=== PATIENT | female | born 1990 | race American Indian/Alaskan Native ===

== ENCOUNTER 2016-08-17 13:07 | Emergency (ER) | payer MEDICAID, OTHER ==
[2016-08-17 13:07] VITALS: BMI 28.0
[2016-08-17 13:48] VITALS: BP 128/82; PULSE 67; RESP 18; TEMP 99.3; O2SAT 100
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
== END 2016-08-17 15:13 | disposition home or self-care (01) ==
LOC: C.ER 13:07
DX: S39.012A Strain of muscle, fascia and tendon of lower back, initial encounter (principal); V89.2XXA Person injured in unspecified motor-vehicle accident, traffic, initial encounter

== ENCOUNTER 2016-10-18 18:49 | Emergency (ER) | payer MEDICAID, OTHER ==
[2016-10-18 19:18] VITALS: BP 98/62; PULSE 82; TEMP 98.6; O2SAT 99
[2016-10-18 19:21] VITALS: BMI 21.6
[2016-10-18] MEDS ORDERED: Amoxicillin-Clav 875-125 mg Tab PO STA (20:25)
[2016-10-18] MEDS ORDERED: Bacitracin 500 Units/gm Oint Foilpak UD TOP ONE (20:26)
[2016-10-18] MEDS ORDERED: Amoxicillin-Clav 875-125 mg Tab PO ONE (20:39)
[2016-10-18] MEDS ORDERED: Bacitracin 500 Units/gm Oint Foilpak UD ONE (20:40)
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
[2016-10-18 21:39] VITALS: RESP 20
== END 2016-10-18 21:38 | disposition home or self-care (01) ==
LOC: SUPCPDRO 18:49 → C.ER 18:49
DX: S50.872A Other superficial bite of left forearm, initial encounter (principal); Y04.1XXA Assault by human bite, initial encounter; Y92.9 Unspecified place or not applicable

== ENCOUNTER 2017-05-02 17:07 | Emergency (ER) | payer MEDICAID ==
[2017-05-02 17:34] VITALS: BMI 22.4
[2017-05-02 20:15] VITALS: BP 105/69; PULSE 77; RESP 17; TEMP 98; O2SAT 98
[2017-05-02] MEDS ORDERED: guaiFENesin 100 mg/5 ml Syrup UD PO STA (20:46)
--- NOTE | 2017-05-02 20:48 | C.PDOC ---
History Of Present Illness 26 y/o female presents to the ER complaining of congestion and coughing which has been present for 3 days. Patient reports having chest pain with coughing.Patient states that she has some throat pain and she coughed up some green phlegm. Patient reports that she had an episode of diarrhea in the morning. Patient states that she feels weak but denies having any fever. She states that she has not taken any medications. Of note, patient works in a daycare center. Time Seen by Provider: 05/02/17 19:27 Chief Complaint (Nursing): Cough, Cold, Congestion History/Exam Limitations: no limitations Onset/Duration Of Symptoms: Days Current Symptoms Are (Timing): Still Present Associated Symptoms: Diarrhea. denies: Fever Past Medical History Reviewed: Historical Data, Nursing Documentation, Vital Signs Vital Signs: Last Vital Signs Temp 98 F 05/02/17 20:12 Pulse 77 05/02/17 20:12 Resp 17 05/02/17 20:12 BP 105/69 05/02/17 20:12 Pulse Ox 98 05/02/17 20:48 - Medical History PMH: No Chronic Diseases Surgical History: No Surg Hx Family History: States: No Known Family Hx - Social History Hx Tobacco Use: No Hx Alcohol Use: No Hx Substance Use: No - Immunization History Hx Tetanus Toxoid Vaccination: No Hx Influenza Vaccination: No Hx Pneumococcal Vaccination: No Review Of Systems Except As Marked, All Systems Reviewed And Found Negative. Constitutional: Negative for: Fever, Chills ENT: Positive for: Nose Congestion Cardiovascular: Positive for: Chest Pain Respiratory: Positive for: Cough, Sputum (green sputum) Gastrointestinal: Positive for: Diarrhea Physical Exam - Physical Exam Appears: Non-toxic, No Acute Distress, Other (sounds congested) Skin: Normal Color, Warm Head: Atraumatic, Normacephalic Eye(s): bilateral: Normal Inspection Nose: Normal Oral Mucosa: Moist Throat: Normal, No Erythema Neck: Supple Chest: Symmetrical Cardiovascular: Rhythm Regular Respiratory: Normal Breath Sounds, No Accessory Muscle Use Extremity: Normal ROM Neurological/Psych: Oriented x3, Normal Speech, Normal Cognition, Normal Motor, Normal Sensation ED Course And Treatment O2 Sat by Pulse Oximetry: 98 (RA) Pulse Ox Interpretation: Normal Medical Decision Making Medical Decision Making: viral syndrome, works daycare, smokes 3 cigars/day. Plan: --Robitussin 100 mg PO --Motrin 600 mg PO Disposition Doctor Will See Patient In The: Office Counseled Patient/Family Regarding: Studies Performed, Diagnosis - Disposition Referrals: [facility] [Outside] [facility] [Outside] Disposition: HOME/ ROUTINE Disposition Time: 20:47 Condition: GOOD Additional Instructions: continue Dayquil and Nyquil-like products Symptoms typically last about 2 weeks. 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 Instructions: Viral Syndrome (ED) Forms: [facility] ([place]), Work Excuse - Clinical Impression Clinical Impression: Viral syndrome - Scribe Statement The provider has reviewed the documentation as recorded by the Sukhwinderibe Lisandra Garcia Provider Attestation: All medical record entries made by the Sukhwinderibe were at my direction and personally dictated by me. I have reviewed the chart and agree that the record accurately reflects my personal performance of the history, physical exam, medical decision making, and the department course for this patient. I have also personally directed, reviewed, and agree with the discharge instructions and disposition.
[2017-05-02] MEDS ORDERED: guaiFENesin 100 mg/5 ml Syrup UD ONE (20:52)
== END 2017-05-02 20:57 | disposition home or self-care (01) ==
LOC: C.ER 17:07
DX: B34.9 Viral infection, unspecified (principal)

== ENCOUNTER 2017-05-14 03:13 | Emergency (ER) | payer MEDICAID ==
[2017-05-14 03:13] VITALS: BMI 22.4
[2017-05-14] MEDS ORDERED: Sodium Chloride 0.9% 1,000 ML IV ONE (03:36)
--- NOTE | 2017-05-14 04:12 | C.PDOC ---
History Of Present Illness 26 years old female presents to ED with complaints of having multiple episodes of vomiting food and liquids that began 9pm. Associated symptoms are several episodes of soft stool, nausea, and abdominal pain while vomiting. she denies fever or chills. Patient states brother had similar symptoms several days ago. Time Seen by Provider: 05/14/17 03:30 Chief Complaint (Nursing): GI Problem History Per: Patient History/Exam Limitations: no limitations Onset/Duration Of Symptoms: Hrs Current Symptoms Are (Timing): Still Present Severity: Mild Pain Scale Rating Of: 3 Radiation Of Pain To:: None Quality Of Discomfort: Unable To Describe Associated Symptoms: Nausea, Vomiting (multiple episodes associated with abdominal pain), Other (several soft stool episodes). denies: Fever, Chills Exacerbating Factors: None Alleviating Factors: None Recent travel outside of the [place]: No Abnormal Vaginal Bleeding: No Past Medical History Reviewed: Historical Data, Nursing Documentation, Vital Signs Vital Signs: Last Vital Signs Temp 98.6 F 05/14/17 05:58 Pulse 74 05/14/17 05:58 Resp 17 05/14/17 05:58 BP 115/77 05/14/17 05:58 Pulse Ox 100 05/14/17 05:58 - Medical History PMH: No Chronic Diseases Surgical History: No Surg Hx Family History: States: No Known Family Hx - Social History Hx Tobacco Use: No Hx Alcohol Use: No Hx Substance Use: No - Immunization History Hx Tetanus Toxoid Vaccination: No Hx Influenza Vaccination: No Hx Pneumococcal Vaccination: No Review Of Systems Constitutional: Negative for: Fever, Chills Gastrointestinal: Positive for: Nausea, Vomiting (multiple episodes associated with abdominal pain), Other (several episodes of soft stool) Skin: Negative for: Rash Neurological: Negative for: Weakness, Numbness Psych: Negative for: Depression, Suicidal ideation Physical Exam - Physical Exam Appears: Non-toxic, No Acute Distress, Other (Awake and alert; appears comfortable) Skin: Warm, Dry Head: Atraumatic, Normacephalic Eye(s): bilateral: Normal Inspection Oral Mucosa: Moist Neck: Supple Chest: Symmetrical, No Tenderness Cardiovascular: Rhythm Regular Respiratory: Normal Breath Sounds, No Rales, No Rhonchi, No Wheezing Gastrointestinal/Abdominal: Soft, No Tenderness, No Distention, No Guarding, No Rebound Neurological/Psych: Oriented x3, Normal Speech, Normal Cognition ED Course And Treatment - Laboratory Results Result Diagrams: 05/14/17 04:18 05/14/17 04:18 O2 Sat by Pulse Oximetry: 99 (Room air ) Pulse Ox Interpretation: Normal Medical Decision Making Medical Decision Making: Administered Pepcid, Zofran and IV fluids. Ordered blood work and Urinalysis. 520 am pt feeling better, will give poi challenge; repeat ab exam soft, nd, nt. 645 am pt feeling much better, will d/c home, tolerating fluids po. Disposition Counseled Patient/Family Regarding: Studies Performed, Diagnosis, Need For Followup, Rx Given - Disposition Referrals: [facility] [Outside] Disposition: HOME/ ROUTINE Disposition Time: 06:46 Condition: IMPROVED Additional Instructions: Please drink increased fluids; water, gatorade, tea are good. Slowly add foods like rice, banana. applesauce. toast, etc. Take pepcid and ondansetron (for nausea if needed). Follow up with your doctor or in clinic in a few days. Return for any worsening symptoms. Prescriptions: Famotidine [Pepcid] 20 mg PO DAILY #14 tab Ondansetron ODT [Zofran ODT] 4 mg PO TID #12 odt Instructions: Gastroenteritis (ED) Forms: [facility] (Tajik), General Discharge Instructions - Clinical Impression Clinical Impression: Gastroenteritis - PA / AUTOMATION QA LEAD / Resident Statement MD/DO has reviewed & agrees with the documentation as recorded. - Scribe Statement The provider has reviewed the documentation as recorded by the Sukhwinderiblarry Rojo All medical record entries made by the Scribe were at my direction and personally dictated by me. I have reviewed the chart and agree that the record accurately reflects my personal performance of the history, physical exam, medical decision making, and the department course for this patient. I have also personally directed, reviewed, and agree with the discharge instructions and disposition.
[2017-05-14] MEDS ORDERED: Sodium Chloride 0.9% 1,000 ML ONE (04:18)
[2017-05-14 04:20] LABS: BASO % 0.1 % (0.0-2.0); EOS % 0.3 % (0.0-4.0); LYMPH # 0.6 K/uL (1.0-4.3); LYMPH % 4.2 % (20.0-40.0); MEAN CELL VOLUME 94.7 fL (81.0-99.0); MEAN CORPUSCULAR HEMOGLOBIN 32.6 pg (27.0-31.0); MEAN CORPUSCULAR HGB CONC 34.4 g/dL (33.0-37.0); MEAN PLATELET VOLUME 7.9 fL (7.2-11.7); MONO # 0.6 K/uL (0.0-0.8); MONO % 4.1 % (0.0-10.0); NEUT # 12.4 K/uL (1.8-7.0); NEUT % 91.3 % (50.0-75.0); PLATELET COUNT 269 K/uL (130-400); RBC 4.28 Mil/uL (3.80-5.20); RED CELL DISTRIBUTION WIDTH 13.1 % (11.5-14.5); WHITE BLOOD COUNT 13.6 K/uL (4.8-10.8)
[2017-05-14 04:37] LABS: ALB/GLOB RATIO 1.3 (1.0-2.1); ALBUMIN 4.3 g/dL (3.5-5.0); ALT/SGPT 28 U/L (9-52); AST/SGOT 23 U/L (14-36); BLOOD UREA NITROGEN 16 mg/dL (7-17); GFR AFRICAN-AMERICAN > 60; GFR NON-AFRICAN AMERICAN > 60
[2017-05-14 05:45] LABS: SQUAMOUS EPITHIAL 1 /hpf (0-5); URINE BILIRUBIN NEGATIVE (NEGATIVE); URINE BLOOD NEGATIVE (NEGATIVE); URINE CLARITY Clear (Clear); URINE COLOR Yellow (YELLOW); URINE GLUCOSE (UA) NORMAL (Normal); URINE LEUKOCYTE ESTERASE NEG Leu/uL (Negative); URINE NITRATE NEGATIVE (NEGATIVE); URINE PROTEIN NEGATIVE (NEGATIVE); URINE UROBILINOGEN NORMAL mg/dL (0.2-1.0)
[2017-05-14 05:58] VITALS: BP 115/77; PULSE 74; RESP 17; TEMP 98.6
[2017-05-14 06:09] LABS: LYMPHOCYTE 5 % (20-40); MONOCYTE 4 % (0-10); NEUTROPHIL 91 % (50-75); TOTAL CELLS COUNTED 100
[2017-05-14 06:10] LABS: PLATELET ESTIMATE NORMAL (NORMAL)
[2017-05-14 06:51] VITALS: O2SAT 99
== END 2017-05-14 06:58 | disposition home or self-care (01) ==
LOC: C.ER 03:13
DX: K52.9 Noninfective gastroenteritis and colitis, unspecified (principal)
CPT/HCPCS: 80053; 81001; 85025; 96361; 96374; 96375; 99285; J2405; J7040

== ENCOUNTER 2017-07-09 20:44 | Emergency (ER) | payer MEDICAID ==
[2017-07-09 20:45] VITALS: BMI 22.4
[2017-07-09 20:54] VITALS: BP 115/75; PULSE 95; RESP 20; TEMP 98.5; O2SAT 100
--- NOTE | 2017-07-09 21:05 | C.PDOC ---
History Of Present Illness 26 year old female presents to ED for evaluation of body aches, nasal congestion , cough, and headache since yesterday. (+)sick contact, patient works at day care. Patient reports having non-bloody diarrhea today. Denies nausea, vomiting , abdominal pain, shortness of breath, dizziness, or fever. Time Seen by Provider: 07/09/17 20:57 Chief Complaint (Nursing): Flu-like Symptoms History Per: Patient History/Exam Limitations: no limitations Onset/Duration Of Symptoms: Days (1) Current Symptoms Are (Timing): Still Present Location Of Pain: Diffuse Myalgias, Headache Sick Contacts (Context): Individual(s) At Work Associated Symptoms: Cough, Myalgias, Nasal Congestion, Diarrhea. denies: Fever , Chills, Sore Throat, Sputum, Vomiting Ear Symptoms: Bilateral: None Recent travel outside of the [place]: No Additional History Per: Patient Past Medical History Reviewed: Historical Data, Nursing Documentation, Vital Signs Vital Signs: Last Vital Signs Temp 98.5 F 07/09/17 20:50 Pulse 95 H 07/09/17 20:50 Resp 20 07/09/17 21:29 BP 115/75 07/09/17 20:50 Pulse Ox 100 07/09/17 21:31 Family History: States: Unknown Family Hx - Social History Hx Tobacco Use: No Hx Alcohol Use: Yes Hx Substance Use: No - Immunization History Hx Tetanus Toxoid Vaccination: No Hx Influenza Vaccination: No Hx Pneumococcal Vaccination: No Review Of Systems Except As Marked, All Systems Reviewed And Found Negative. Constitutional: Positive for: Malaise, Other (body aches). Negative for: Fever , Chills ENT: Positive for: Nose Congestion. Negative for: Ear Pain, Nose Discharge, Throat Pain Cardiovascular: Negative for: Chest Pain Respiratory: Positive for: Cough. Negative for: Shortness of Breath, Sputum Gastrointestinal: Positive for: Diarrhea. Negative for: Nausea, Vomiting, Abdominal Pain, Melena, Hematochezia Genitourinary: Negative for: Dysuria, Frequency, Hematuria Musculoskeletal: Negative for: Back Pain Neurological: Positive for: Headache. Negative for: Weakness, Numbness, Dizziness Physical Exam - Physical Exam Appears: Non-toxic, No Acute Distress Skin: Normal Color, Warm, Dry Head: Atraumatic, Normacephalic Eye(s): bilateral: Normal Inspection Ear(s): Bilateral: Normal Nose: Normal Oral Mucosa: Moist Tongue: Normal Appearing Lips: Normal Appearing Throat: Normal, No Erythema, No Exudate, No Drooling Neck: Normal ROM, Supple Chest: Symmetrical Cardiovascular: Rhythm Regular, No Murmur Respiratory: Normal Breath Sounds, No Rales, No Rhonchi, No Wheezing Gastrointestinal/Abdominal: Soft, No Tenderness, No Guarding, No Rebound Extremity: Normal ROM, No Deformity Neurological/Psych: Oriented x3, Normal Speech, No Other (no focal deficits) ED Course And Treatment O2 Sat by Pulse Oximetry: 100 (RA) Pulse Ox Interpretation: Normal Medical Decision Making Medical Decision Making: Patient with multi-symptom complaints, likely viral. Patient has not received Flu vaccine this season. Based on history, exam findings and widespread influenza will treat for Influenza. Patient appears non-toxic and in no distress. Rx given. Patient advised to rest, drink fluids and take medications for supportive treatment. Patient stable for discharge and given follow up instructions. Disposition Counseled Patient/Family Regarding: Diagnosis, Need For Followup, Rx Given - Disposition Referrals: Clinic,Med Surg [Primary Care Provider] - Disposition: HOME/ ROUTINE Disposition Time: 21:25 Condition: GOOD Additional Instructions: You have influenza. Take Tamiflu twice a day for 5 days. Take Tylenol or Motrin alternating every 4-6 hours for Fever 100.4F or higher. Rest and drink plenty of fluids. Try symptomatic relief. Symptoms can last 7-10 days. Follow up with your primary medical doctor or clinic in 2-5 days for further evaluation. Return to the emergency department at any time if symptoms persist or worsen. 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 - Scribe Statement The provider has reviewed the documentation as recorded by the Fausto Nava All medical record entries made by the Scribe were at my direction and personally dictated by me. I have reviewed the chart and agree that the record accurately reflects my personal performance of the history, physical exam, medical decision making, and the department course for this patient. I have also personally directed, reviewed, and agree with the discharge instructions and disposition.
== END 2017-07-09 21:29 | disposition home or self-care (01) ==
LOC: C.ER 20:44 → SUPCPDRO 20:44 → C.ER 21:29
DX: J11.1 Influenza due to unidentified influenza virus with other respiratory manifestations (principal)

== ENCOUNTER 2017-09-20 23:01 | Emergency (ER) | payer MEDICAID ==
[2017-09-20 23:01] VITALS: BMI 22.4
[2017-09-20 23:44] VITALS: BP 106/72; PULSE 87; RESP 16; TEMP 98.4; O2SAT 99
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
--- NOTE | 2017-09-21 08:11 | RAD ---
PROCEDURE: Left Knee Radiographs. HISTORY: Pain. COMPARISON: None. FINDINGS: BONES: No fracture identified. JOINTS: No dislocation seen. Bony articulations appear maintained. JOINT EFFUSION: There is no significant joint effusion OTHER FINDINGS: None. IMPRESSION: No fracture or dislocation identified.
== END 2017-09-21 01:20 | disposition home or self-care (01) ==
LOC: C.ER 23:01
DX: S83.92XA Sprain of unspecified site of left knee, initial encounter (principal); X50.0XXA Overexertion from strenuous movement or load, initial encounter; Y93.41 Activity, dancing; Y92.89 Other specified places as the place of occurrence of the external cause

== ENCOUNTER 2017-10-16 13:58 | Emergency (ER) | payer MEDICAID ==
[2017-10-16 13:59] VITALS: BMI 22.4
[2017-10-16 14:11] VITALS: O2SAT 100
[2017-10-16] MEDS ORDERED: Sodium Chloride 0.9% 1,000 ML IV ONE (14:42)
--- NOTE | 2017-10-16 15:04 | RAD ---
HISTORY: abd pain COMPARISON: No prior. TECHNIQUE: Chest PA and lateral FINDINGS: LUNGS: No active pulmonary disease. PLEURA: No significant pleural effusion identified. No pneumothorax apparent. CARDIOVASCULAR: Normal. OSSEOUS STRUCTURES: No significant abnormalities. VISUALIZED UPPER ABDOMEN: Normal. OTHER FINDINGS: None. IMPRESSION: No active disease.
[2017-10-16 15:31] LABS: BASO % 0.6 % (0.0-2.0); EOS # 0.1 K/uL (0.0-0.7); EOS % 1.6 % (0.0-4.0); HEMOGLOBIN 12.9 g/dL (11.0-16.0); LYMPH # 2.2 K/uL (1.0-4.3); LYMPH % 39.6 % (20.0-40.0); MEAN CELL VOLUME 94.2 fL (81.0-99.0); MEAN CORPUSCULAR HEMOGLOBIN 32.5 pg (27.0-31.0); MEAN CORPUSCULAR HGB CONC 34.5 g/dL (33.0-37.0); MEAN PLATELET VOLUME 8.2 fL (7.2-11.7); MONO # 0.6 K/uL (0.0-0.8); MONO % 10.8 % (0.0-10.0); NEUT # 2.6 K/uL (1.8-7.0); NEUT % 47.4 % (50.0-75.0); NRBC % 0.1 % (0.0-2.0); RBC 3.97 Mil/uL (3.80-5.20); RED CELL DISTRIBUTION WIDTH 13.6 % (11.5-14.5)
[2017-10-16 15:36] LABS: WHITE BLOOD COUNT 5.5 K/uL (4.8-10.8)
[2017-10-16 15:38] LABS: SQUAMOUS EPITHIAL 1 /hpf (0-5); URINE BILIRUBIN NEGATIVE (NEGATIVE); URINE BLOOD NEGATIVE (NEGATIVE); URINE CLARITY Clear (Clear); URINE COLOR Yellow (YELLOW); URINE GLUCOSE (UA) NORMAL (Normal); URINE LEUKOCYTE ESTERASE TRACE Leu/uL (Negative); URINE PROTEIN NEGATIVE (NEGATIVE); URINE UROBILINOGEN NORMAL mg/dL (0.2-1.0)
[2017-10-16 15:47] LABS: ALB/GLOB RATIO 1.5 (1.0-2.1); ALBUMIN 4.5 g/dL (3.5-5.0); ALT/SGPT 15 U/L (9-52); AST/SGOT 23 U/L (14-36); BLOOD UREA NITROGEN 11 mg/dL (7-17); CALCIUM 9.8 mg/dl (8.6-10.4); GFR AFRICAN-AMERICAN > 60; GFR NON-AFRICAN AMERICAN > 60; LIPASE 129 U/L (23-300)
[2017-10-16] MEDS ORDERED: Sodium Chloride 0.9% 1,000 ML ONE (15:54)
--- NOTE | 2017-10-16 16:49 | C.PDOC ---
History Of Present Illness 27 y/o female presents to the ER complaining of dizziness, musculoskeletal pain , and diaphoresis which has been present for the past 4 days. Patient states that she has musculoskeletal pain in the chest, upper back, and bilateral arms and the pain is worse with movement. Patient is also complaining of weakness. Denies having nausea, vomiting, and hx of DVT/PE. Of note, patient is using control and her LMP was 1 year ago. Time Seen by Provider: 10/16/17 14:29 Chief Complaint (Nursing): Dizziness/Lightheaded History Per: Patient History/Exam Limitations: no limitations Onset/Duration Of Symptoms: Days Current Symptoms Are (Timing): Still Present Severity: Moderate Past Medical History Reviewed: Historical Data, Nursing Documentation, Vital Signs Vital Signs: Last Vital Signs Temp 98.8 F 10/16/17 17:14 Pulse 76 10/16/17 17:14 Resp 20 10/16/17 17:14 BP 104/63 10/16/17 17:14 Pulse Ox 100 10/16/17 17:14 - Medical History PMH: No Chronic Diseases Surgical History: No Surg Hx Family History: States: No Known Family Hx - Social History Hx Tobacco Use: No Hx Alcohol Use: Yes Hx Substance Use: No - Immunization History Hx Tetanus Toxoid Vaccination: No Hx Influenza Vaccination: No Hx Pneumococcal Vaccination: No Review Of Systems Except As Marked, All Systems Reviewed And Found Negative. Constitutional: Positive for: Weakness. Negative for: Fever, Chills Musculoskeletal: Positive for: Other (musculoskeletal pain) Skin: Positive for: Other (diaphoresis) Neurological: Positive for: Dizziness Physical Exam - Physical Exam Appears: Non-toxic, No Acute Distress Skin: Normal Color, Warm, Dry, No Diaphoretic Head: Atraumatic, Normacephalic Eye(s): bilateral: Normal Inspection Nose: Normal Oral Mucosa: Moist Neck: Supple Chest: Symmetrical Cardiovascular: Rhythm Regular Respiratory: Normal Breath Sounds, No Rales, No Rhonchi, No Wheezing Gastrointestinal/Abdominal: Normal Exam, Bowel Sounds ((+) bowel sounds), Soft, No Tenderness, No Guarding, No Rebound Back: Normal Inspection, No CVA Tenderness Extremity: Normal ROM, No Tenderness, No Swelling Neurological/Psych: Oriented x3, Normal Speech ED Course And Treatment - Laboratory Results Result Diagrams: 10/16/17 15:26 10/16/17 15:26 ECG: Interpreted By Me, Viewed By Me ECG Rhythm: Sinus Rhythm ECG Interpretation: Normal Interpretation Of ECG: NSR with normal intervals, normal axises, and no ST/ T wave abnormalities Rate From EC O2 Sat by Pulse Oximetry: 100 (RA) Pulse Ox Interpretation: Normal Medical Decision Making Medical Decision Making: Assessment: Dizziness, Weakness Plan: --Labs --EKG --UA --CXR --Antivert PO -- Toradol IV -- IV Fluids patient states improvement will discharge home to follow up pmd call to make an appointment return to ER if symptoms worsens or progress Disposition Counseled Patient/Family Regarding: Studies Performed, Diagnosis, Need For Followup, Rx Given - Disposition Disposition: HOME/ ROUTINE Disposition Time: 16:50 Condition: IMPROVED Additional Instructions: follow up with medical clinic within 2 days call to make an appointment take medications as prescribed return to ER if symptoms worsens or progress Prescriptions: Meclizine [Meclizine*] 25 mg PO TID PRN #15 tab PRN Reason: Dizziness Naproxen [Naprosyn] 500 mg PO BID PRN #16 tab PRN Reason: Pain, Moderate (4-7) Instructions: Fatigue (DC), Vertigo (a Type of Dizziness) (DC), Muscle and Bone Pain (DC), Weakness (ED) Forms: General Discharge Instructions, [facility] (Romanian), Work Excuse - Clinical Impression Clinical Impression: Dizziness, Fatigue, Weakness - Scribe Statement The provider has reviewed the documentation as recorded by the Fausto Garcia Provider Attestation: All medical record entries made by the Fausto were at my direction and personally dictated by me. I have reviewed the chart and agree that the record accurately reflects my personal performance of the history, physical exam, medical decision making, and the department course for this patient. I have also personally directed, reviewed, and agree with the discharge instructions and disposition.
[2017-10-16 17:14] VITALS: BP 104/63; PULSE 76; RESP 20; TEMP 98.8
--- NOTE | 2017-10-19 12:20 | CARD ---
APPROVED REPORT EKG Measurement Heart [id number] <Conclusion> Normal sinus rhythm Possible Left atrial enlargement Borderline ECG
== END 2017-10-16 17:20 | disposition home or self-care (01) ==
LOC: C.ER 13:58
DX: R42 Dizziness and giddiness (principal); R53.83 Other fatigue; R53.1 Weakness
CPT/HCPCS: 71046; 80053; 81001; 82948; 83690; 85025; 85378; 96361; 96374; 99285; J1885; J7030